=== PATIENT | female | born 1955 | race African-American/Black ===

== ENCOUNTER 2018-08-16 07:51 | Emergency (ER) | payer MEDICARE, MEDICAID ==
[~2018-08-16] VITALS: Ht 175.3 cm; Wt 100.0 kg
[~2018-08-16 07:51] MED LIST: ASPI-1159 PO; CARV3.1242 PO; DILT240C91 PO; HYDR-4133 PO; INSLIS SUBCUT; LOSA25TA12 PO; METF1000 PO; METF500T PO
[2018-08-16] MEDS ORDERED: KETOROLAC 30MG/ML VIAL IV STA ×2 (11:17→16:32)
[2018-08-16] MEDS ORDERED: MORPHINE SULFATE 4 MG/ML CPJ (NOT FOR IM USE) IV STA ×2 (11:17→16:32)
[2018-08-16] MEDS ORDERED: SODIUM CHLORIDE 0.9% 1,000 ML IV ONE (11:17)
[2018-08-16] MEDS ORDERED: ONDANSETRON HCL 4MG/2ML INJ IV STA ×2 (11:17→16:32)
[2018-08-16] MEDS ORDERED: ENALAPRIL 2.5MG/2ML VIAL 2ML IV ONE ×2 (11:30→16:45)
[2018-08-16 11:45] LABS: CLARITY URINE CLEAR (CLEAR); COLOR URINE YELLOW (YELLOW); KETONES URINE NEGATIVE (NEGATIVE); LEUKOCYTE ESTERASE URINE 1+ (NEGATIVE); NITRITE URINE NEGATIVE (NEGATIVE); OCCULT BLOOD URINE NEGATIVE (NEGATIVE); PH URINE 7.5 (4.5-8.0); PROTEIN URINE NEGATIVE (NEGATIVE); SPECIFIC GRAVITY URINE 1.005 (1.005-1.030); UROBILINOGEN URINE 0.2 E.U./dL (0.2-1.0)
[2018-08-16 12:37] LABS: BASOPHILS % 0.7 % (0.0-2.0); EOSINOPHILS % 4.1 % (0.0-5.0); HEMATOCRIT. 39.1 % (36.0-48.0); HEMOGLOBIN. 12.6 g/dL (12.0-16.0); LYMPHOCYTES % 32.5 % (20.0-50.0); MEAN CORPUSCULAR HEMOGLOBIN 26.1 pg (28.0-32.0); MEAN CORPUSCULAR VOLUME 81.1 fL (81.0-99.0); MEAN PLATELET VOLUME 8.3 fl (7.4-10.4); MONOCYTES % 5.3 % (2.0-8.0); NEUTROPHILS % 57.4 % (40.0-76.0); PLATELET 236 x1000/uL (130-400); RED BLOOD CELL COUNT 4.82 mill/uL (4.2-5.4); RED CELL DISTRIBUTION WIDTH 16.5 % (11.6-14.6)
[2018-08-16 12:43] LABS: CHLORIDE 109 mEq/L (98-107)
[2018-08-16 12:52] LABS: INR 1.1; PROTHROMBIN TIME 11.1 sec (9.1-11.1)
[2018-08-16 17:30] VITALS: BP 164/78
== END 2018-08-16 17:30 | disposition home or self-care (01) ==
LOC: ER 07:51
DX: N39.0 Urinary tract infection, site not specified (principal); I10 Essential (primary) hypertension
CPT/HCPCS: 36415; 71045; 73630; 74176; 80053; 81003; 83690; 85025; 85610; 96374; 96375; 99284; J1885; J2270; J2405; J7030

== ENCOUNTER 2019-03-14 13:50 | Inpatient (IN) | payer MEDICARE, MEDICAID ==
[~2019-03-14] VITALS: Ht 175.3 cm; Wt 95.5 kg
[~2019-03-14 13:50] MED LIST changes: -ASPI-1159 PO; +ASPI-1393 PO; -LOSA25TA12 PO; +LOSA25TA26 PO
[2019-03-14] MEDS ORDERED: ALBUTEROL (0.083%) 2.5MG/3ML NEB HHN STA (18:26)
[2019-03-14] MEDS ORDERED: SODIUM CHLORIDE 0.9% 1,000 ML IV ONE (18:26)
[2019-03-14] MEDS ORDERED: IPRATROPIUM BROMIDE (0.02%) 0.5MG/2.5ML NEB HHN STA (18:26)
[2019-03-14 19:00] LABS: BASOPHILS % 0.4 % (0.0-2.0); EOSINOPHILS % 7.2 % (0.0-5.0); HEMATOCRIT. 37.1 % (36.0-48.0); HEMOGLOBIN. 12.3 g/dL (12.0-16.0); LYMPHOCYTES % 33.8 % (20.0-50.0); MEAN CORPUSCULAR HEMOGLOBIN 26.5 pg (28.0-32.0); MEAN CORPUSCULAR VOLUME 79.8 fL (81.0-99.0); MEAN PLATELET VOLUME 8.3 fl (7.4-10.4); MONOCYTES % 7.8 % (2.0-8.0); NEUTROPHILS % 50.8 % (40.0-76.0); PLATELET 195 x1000/uL (130-400); RED BLOOD CELL COUNT 4.66 mill/uL (4.2-5.4); RED CELL DISTRIBUTION WIDTH 16.8 % (11.6-14.6)
[2019-03-14 19:03] LABS: CHLORIDE 105 mEq/L (98-107)
[2019-03-14] MEDS ORDERED: ASPIRIN 325MG TABLET PO ONE (19:45)
[2019-03-14] MEDS ORDERED: LOSARTAN POTASSIUM 25 MG TABLET PO ONE (20:15)
[2019-03-14 21:08] LABS: CLARITY URINE CLEAR (CLEAR); COLOR URINE YELLOW (YELLOW); KETONES URINE TRACE (NEGATIVE); LEUKOCYTE ESTERASE URINE 1+ (NEGATIVE); NITRITE URINE NEGATIVE (NEGATIVE); OCCULT BLOOD URINE NEGATIVE (NEGATIVE); PH URINE 6.5 (4.5-8.0); PROTEIN URINE NEGATIVE (NEGATIVE); SPECIFIC GRAVITY URINE 1.009 (1.005-1.030)
[2019-03-14 22:47] VITALS: BP 183/66
[2019-03-15] VITALS: BP 170/66
[2019-03-15] MEDS ORDERED: DIPHENHYDRAMINE 50MG/ML VIAL IV PRN (00:15)
[2019-03-15] MEDS ORDERED: CLONIDINE 0.1MG TABLET PO PRN (00:15)
[2019-03-15] MEDS ORDERED: NON FORMULARY PATIENT HOME MED ORI SCH (00:15)
[2019-03-15] MEDS ORDERED: MORPHINE SULFATE 2 MG/ML CPJ (NOT FOR IM USE) IV PRN (00:15)
[2019-03-15] MEDS ORDERED: ZOLPIDEM TARTRATE 5MG TABLET PO PRN (00:15)
[2019-03-15] MEDS ORDERED: DEXTROSE 50% WATER 50ML SYRINGE IV PRN ×2 (00:15→13:30)
[2019-03-15] MEDS ORDERED: FURO20TA4 MT (01:25)
[2019-03-15 04:00] VITALS: BP 150/66
[2019-03-15] MEDS: AZITHROMYCIN 500 MG in DEXT 5% WATER 250 ML IV SCH (05:35)
[2019-03-15] MEDS: HYDRALAZINE HCL 50MG TABLET PO SCH ×3 (05:36→21:15)
[2019-03-15 05:55] LABS: BASOPHILS % 0.4 % (0.0-2.0); EOSINOPHILS % 7.8 % (0.0-5.0); HEMATOCRIT. 32.6 % (36.0-48.0); LYMPHOCYTES % 36.7 % (20.0-50.0); MEAN CORPUSCULAR HEMOGLOBIN 26.7 pg (28.0-32.0); MEAN CORPUSCULAR VOLUME 79.1 fL (81.0-99.0); MEAN PLATELET VOLUME 8.3 fl (7.4-10.4); NEUTROPHILS % 47.1 % (40.0-76.0); PLATELET 168 x1000/uL (130-400); RED BLOOD CELL COUNT 4.13 mill/uL (4.2-5.4); RED CELL DISTRIBUTION WIDTH 16.9 % (11.6-14.6)
[2019-03-15 06:01] LABS: CHLORIDE 108 mEq/L (98-107)
[2019-03-15 06:09] LABS: LDL CHOLESTEROL 41 mg/dL (5-100)
[2019-03-15 06:10] LABS: HDL CHOLESTEROL 29 mg/dL (40-59)
[2019-03-15] MEDS: BLOOD SUGAR DIAGNOSTIC STRIP TEST SCH ×6 (06:36→21:44)
[2019-03-15] MEDS ORDERED: INSULIN LISPRO 100 UNITS/ML SUBCUT SCH (07:50)
[2019-03-15 08:00] VITALS: BP 146/64
[2019-03-15] MEDS: IPRATROPIUM/ALBUTEROL 0.5-3(2.5)MG/3ML NEB HHN SCH ×4 (08:42→21:11)
[2019-03-15] MEDS ORDERED: KETOROLAC 30MG/ML VIAL IV PRN (08:45)
[2019-03-15] MEDS ORDERED: DIPHENHYDRAMINE 12.5MG/5ML UDC PO PRN (08:45)
[2019-03-15] MEDS ORDERED: AZITHROMYCIN 500 MG in DEXT 5% WATER 250 ML IV SCH (09:00)
[2019-03-15] MEDS ORDERED: LOSARTAN POTASSIUM 50 MG TABLET PO SCH (09:00)
[2019-03-15] MEDS ORDERED: BUDESONIDE 0.5MG/2ML NEB HHN SCH (09:00)
[2019-03-15] MEDS ORDERED: FUROSEMIDE 40MG/4ML VIAL IV SCH (09:00)
[2019-03-15] MEDS: CARVEDILOL 3.125 MG TABLET PO SCH ×2 (09:39→21:14)
[2019-03-15] MEDS: LOSARTAN POTASSIUM 100 MG TABLET PO SCH (09:40)
[2019-03-15] MEDS: ENOXAPARIN 30MG/0.3ML SYR SUBCUT SCH ×2 (09:42→21:12)
[2019-03-15] MEDS ORDERED: POTASSIUM CHLORIDE 20MEQ TABLET SR PO NR (10:00)
[2019-03-15 12:00] VITALS: BP 150/70
[2019-03-15 16:00] VITALS: BP 126/75
[2019-03-15] MEDS: INSULIN LISPRO 100 UNITS/ML SUBCUT SCH ×2 (18:26→21:44)
[2019-03-15 20:00] VITALS: BP 150/66
[2019-03-15] MEDS ORDERED: ATORVASTATIN CALCIUM 40MG TABLET PO SCH (21:00)
[2019-03-15] MEDS: GUAIFENESIN 600MG ER TABLET PO SCH (21:14)
[2019-03-16] VITALS: BP 140/65
[2019-03-16] MEDS: IPRATROPIUM/ALBUTEROL 0.5-3(2.5)MG/3ML NEB HHN SCH ×5 (01:01→16:09)
[2019-03-16 04:00] VITALS: BP_SYST 115; BP_SYST 131; BP_SYST 156; BP_DIAS 61; BP_DIAS 68; BP_DIAS 70
[2019-03-16] MEDS: HYDRALAZINE HCL 50MG TABLET PO SCH (05:41)
[2019-03-16 06:13] LABS: BASOPHILS % 0.4 % (0.0-2.0); EOSINOPHILS % 5.7 % (0.0-5.0); HEMATOCRIT. 36.3 % (36.0-48.0); LYMPHOCYTES % 40.6 % (20.0-50.0); MEAN CORPUSCULAR HEMOGLOBIN 26.2 pg (28.0-32.0); MEAN CORPUSCULAR VOLUME 79.3 fL (81.0-99.0); MEAN PLATELET VOLUME 8.5 fl (7.4-10.4); NEUTROPHILS % 48.3 % (40.0-76.0); PLATELET 200 x1000/uL (130-400); RED BLOOD CELL COUNT 4.58 mill/uL (4.2-5.4); RED CELL DISTRIBUTION WIDTH 17.1 % (11.6-14.6)
[2019-03-16 06:25] LABS: CHLORIDE 108 mEq/L (98-107)
[2019-03-16] MEDS: BLOOD SUGAR DIAGNOSTIC STRIP TEST SCH ×2 (06:50→13:13)
[2019-03-16] MEDS: INSULIN LISPRO 100 UNITS/ML SUBCUT SCH ×2 (06:51→13:49)
[2019-03-16 08:00] VITALS: BP 164/72
[2019-03-16] MEDS: GUAIFENESIN 600MG ER TABLET PO SCH (09:22)
[2019-03-16] MEDS: LOSARTAN POTASSIUM 100 MG TABLET PO SCH (09:22)
[2019-03-16] MEDS: AZITHROMYCIN 500 MG in DEXT 5% WATER 250 ML IV SCH (09:22)
[2019-03-16] MEDS: CARVEDILOL 3.125 MG TABLET PO SCH (09:25)
[2019-03-16] MEDS: ENOXAPARIN 30MG/0.3ML SYR SUBCUT SCH (09:32)
[2019-03-16 12:00] VITALS: BP 145/68
[2019-03-16 16:00] VITALS: BP 146/78
[2019-03-16 16:30] VITALS: BP 142/72
[2019-03-17] MEDS ORDERED: AZITHROMYCIN 500 MG TABLET PO SCH (09:00)
== END 2019-03-16 17:31 | disposition home or self-care (01) | DRG 153 ==
LOC: ER 13:50 → 6WST 20:45 → EDBEDREQTM 20:53 → EDBEDREQ 20:53 → ENRESERV 21:10
PROVIDERS: ADMIT Internal Medicine; ATTEND Internal Medicine
DX: J06.9 Acute upper respiratory infection, unspecified (principal); I24.9 Acute ischemic heart disease, unspecified; G90.8 Other disorders of autonomic nervous system; E87.6 Hypokalemia; E87.8 Other disorders of electrolyte and fluid balance, not elsewhere classified; E66.9 Obesity, unspecified; E11.9 Type 2 diabetes mellitus without complications; I10 Essential (primary) hypertension; I25.10 Atherosclerotic heart disease of native coronary artery without angina pectoris; Z95.5 Presence of coronary angioplasty implant and graft; Z68.31 Body mass index [BMI] 31.0-31.9, adult; Z88.1 Allergy status to other antibiotic agents; Z79.899 Other long term (current) drug therapy; Z79.82 Long term (current) use of aspirin; Z98.891 History of uterine scar from previous surgery; Z71.3 Dietary counseling and surveillance
CPT/HCPCS: 36415; 71045; 80048; 80061; 81003; 82962; 83036; 83880; 84443; 84484; 93005; 93306; 94640; 96374; 97161; 99285; J0456; J1200; J1650; J1815; J1940; J7030; J7060; J7611; J7620; J7626

== ENCOUNTER 2023-09-27 15:24 | Emergency (ER) | payer MEDICAID, MEDICARE ==
[~2023-09-27] VITALS: Ht 172.7 cm; Wt 97.0 kg
[~2023-09-27 15:24] MED LIST changes: -ASPI-1393 PO; +ASPI-1497 PO; -DILT240C91 PO; +FURO20TA4 MT; +HYDR-2988 PO; -HYDR-4133 PO; -METF500T PO
[2023-09-27 15:43] VITALS: O2SAT 99
[2023-09-27] MEDS ORDERED: GUAI-450 MT (17:06)
[2023-09-27] MEDS ORDERED: BENZ1LOZ73 MT (17:06)
[2023-09-27 17:24] VITALS: BP 118/70; PULSE 76; RESP 18; TEMP 98.9
== END 2023-09-27 17:25 | disposition home or self-care (01) ==
LOC: ER 15:24
DX: J06.9 Acute upper respiratory infection, unspecified (principal); E11.9 Type 2 diabetes mellitus without complications; I10 Essential (primary) hypertension; Z79.899 Other long term (current) drug therapy
CPT/HCPCS: 71045; 99283